=== PATIENT | female | born 1960 | race Caucasian/White ===

== ENCOUNTER 2017-01-12 17:15 | Emergency (ER) | payer OTHER ==
[2017-01-12 17:21] VITALS: BP 162/94; PULSE 121; RESP 20; TEMP 98.5
[2017-01-12] MEDS ORDERED: HYDROcodone/APAP 7.5-325MG 1 EACH TAB PO ONE (17:54)
[2017-01-12] MEDS ORDERED: DIPH,PERTUS(ACELL)TETVAC-LF 0.5 ML VIAL IM ONE (17:55)
--- NOTE | 2017-01-12 18:18 | ED ---
Animal Bite HPI - General Chief Complaint: Animal Bite Stated Complaint: dog bite Time Seen by Provider: 01/12/17 17:37 Source: patient Mode of arrival: ambulatory Limitations: no limitations - History of Present Illness Initial Comments: 56 showed female patient presents to emergency department today for evaluation of a dog bite to the left forearm. Patient states that the animal belongs to her brother at this time. States that the animal is up-to-date on its immunizations including rabies. Patient states that she was breaking up a fight between her dog and this other dog when he bit into her forearm. States this occurred just prior to arrival. Patient states that she is having significant pain to the arm, states it felt like he hit bone. There are 3 small lacerations. Patient denies any numbness or tingling to the hand or wrist or forearm. Denies any difficulty with range of motion to the elbow or the wrist. Patient denies any fall from the attack. Patient's last tetanus was around 5 years ago. Patient denies any other injuries or physical symptoms. - Related Data Previous Rx's Medication Instructions Recorded Amoxicillin/Potassium Clav 1 tab PO Q12HR #14 tab 01/12/17 [Augmentin 875-125 Tablet] Hydrocodone/Acetaminophen [[place] 1 tab PO Q6HR PRN #15 tab 01/12/17 5-325] Allergies Allergy/AdvReac Type Severity Reaction Status Date / Time morphine Allergy Rash/Hives Verified 01/12/17 17:17 Review of Systems ROS Statement: Those systems with pertinent positive or pertinent negative responses have been documented in the HPI. ROS Other: All systems not noted in ROS Statement are negative. Past Medical History Past Medical History: Cancer Additional Past Medical History / Comment(s): stage three breast cancer History of Any Multi-Drug Resistant Organisms: None Reported Past Surgical History: Hysterectomy, Orthopedic Surgery Additional Past Surgical History / Comment(s): BL masectomy, back surgery Past Psychological History: Anxiety, Depression Smoking Status: Current every day smoker Past Alcohol Use History: Occasional Past Drug Use History: None Reported General Exam Limitations: no limitations General appearance: alert, in no apparent distress Head exam: Present: atraumatic, normocephalic, normal inspection Eye exam: Present: normal appearance, PERRL, EOMI. Absent: scleral icterus, conjunctival injection, periorbital swelling ENT exam: Present: normal exam, mucous membranes moist Neck exam: Present: normal inspection, full ROM. Absent: tenderness, meningismus, lymphadenopathy Respiratory exam: Present: normal lung sounds bilaterally. Absent: respiratory distress, wheezes, rales, rhonchi, stridor Cardiovascular Exam: Present: regular rate, normal rhythm, normal heart sounds. Absent: systolic murmur, diastolic murmur, rubs, gallop, clicks GI/Abdominal exam: Present: soft, normal bowel sounds. Absent: distended, tenderness, guarding, rebound, rigid Extremities exam: Present: full ROM, tenderness (Tenderness over the proximal ulna and radius.), normal capillary refill, other (Soft tissue swelling noted to the proximal left forearm. Otherwise skin is pink, warm, and dry. Cap refill is less than 3 seconds. Patient exhibits full range of motion to the left elbow, left shoulder, and left wrist.). Absent: normal inspection (2 cm laceration noted to the dorsal aspect of the proximal left forearm, small puncture wound noted to the dorsal aspect of the proximal left forearm, 1 cm laceration noted to the volar aspect of the left forearm.), pedal edema, joint swelling, calf tenderness Back exam: Present: normal inspection. Absent: tenderness, vertebral tenderness Neurological exam: Present: alert, oriented X3, CN II-XII intact Psychiatric exam: Present: normal affect, normal mood Skin exam: Present: warm, dry, intact, normal color. Absent: rash Course Vital Signs 01/12/17 17:17 Temperature 98.5 F Pulse Rate 121 H Respiratory 20 Rate Blood Pressure 162/94 O2 Sat by Pulse 95 Oximetry Procedures - Laceration Laceration #1 Consent Obtained: verbal consent Time Out Performed: Yes Site: upper extremity, other (Dorsal aspect of the left forearm) Size (cm): 3 Pre-repair: irrigated extensively Complications: pain Patient Tolerated Procedure: well Laceration #2 Consent Obtained: verbal consent Time Out Performed: Yes Indication: laceration Site: upper extremity (Dorsal aspect of the left forearm) Size (cm): 1 Description: linear Pre-repair: irrigated extensively Complications: pain Patient Tolerated Procedure: well Laceration #3 Consent Obtained: verbal consent Time Out Performed: Yes Indication: laceration Site: upper extremity (Volar aspect of the left forearm) Size (cm): 1 Description: linear Pre-repair: irrigated extensively Complications: pain Patient Tolerated Procedure: well Medical Decision Making - Medical Decision Making 56-year-old female patient presented for evaluation of dog bite wounds to the left proximal forearm. X-ray obtained of the left forearm, showed no acute fracture or dislocation did show some tiny foci suggesting subcu emphysema. 3 lacerations to measuring 1 cm one measuring 3 cm were irrigated extensively with sterile water. Bacitracin applied over wounds and covered with gauze. Patient given tetanus shot here. Given starter pack for Augmentin. Patient given a prescription for Augmentin for 10 days. Patient instructed to follow up with her primary care physician for recheck in 1-2 days. Patient struck watch for any signs or symptoms of infection. Patient started to return immediately for any new, worsening, or concerning symptoms. - Radiology Data Radiology results: report reviewed, image reviewed Two-view x-ray of the left forearm shows scattered low attenuation foci through the mid forearm soft tissues, suggesting soft tissue emphysema. There is subcutaneous soft tissue swelling noted medially. No radiopaque foreign body. Impression by Dr. Master Saldivar shows negative bones and joints. Soft tissue swelling was suggestive scattered tiny foci of soft tissue emphysema. Disposition Clinical Impression: Dog bite of forearm Disposition: HOME SELF-CARE Condition: Good Instructions: Animal Bite (ED), Laceration (ED) Additional Instructions: Keep lacerations clean and dry. Complete antibiotic prescription and full. Follow-up with primary care physician for recheck in 1-2 days. Return immediately for any new, worsening, or concerning symptoms. Prescriptions: Amoxicillin/Potassium Clav [Augmentin 875-125 Tablet] 1 tab PO Q12HR #14 tab Hydrocodone/Acetaminophen [[place] 5-325] 1 tab PO Q6HR PRN #15 tab PRN Reason: Pain Referrals: None,Stated [REFERRING] - 1-2 days
[2017-01-12] MEDS ORDERED: AMOXIC-POT CLAV 875MG STARTER 2 EACH TABLET PO STA (18:47)
--- NOTE | 2017-01-12 18:58 | XR ---
EXAMINATION TYPE: XR forearm LT DATE OF EXAM: 01/12/2017 COMPARISON: NONE HISTORY: Dog bite mid forearm, pain TECHNIQUE: 2 views from the elbow to the wrist FINDINGS: The bones and joints are negative. There are scattered low attenuation foci throughout the mid forearm soft tissues, suggesting soft tis cici emphysema. There is subcutaneous soft tissue swelling noted medially. No radiopaque foreign body. IMPRESSION: 1. Negative bones and joints. 2. Soft tissue swelling with suggestion of scattered tiny foci of soft tissue emphysema.
== END 2017-01-12 19:22 | disposition home or self-care (01) ==
LOC: EC 17:15
DX: S51.852A Open bite of left forearm, initial encounter (principal); F17.200 Nicotine dependence, unspecified, uncomplicated; Z85.3 Personal history of malignant neoplasm of breast; Z23 Encounter for immunization; Z88.5 Allergy status to narcotic agent; W54.0XXA Bitten by dog, initial encounter
CPT/HCPCS: 90471; 90715; 99283

== ENCOUNTER 2023-10-19 18:44 | Emergency (ER) | payer OTHER ==
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
[2023-10-19 19:24] VITALS: TEMP 98.7
[2023-10-19 21:02] VITALS: BP 100/68; PULSE 80; RESP 16
== END 2023-10-19 20:18 | disposition home or self-care (01) ==
LOC: EC 18:44
DX: F41.9 Anxiety disorder, unspecified (principal); F17.200 Nicotine dependence, unspecified, uncomplicated; Z88.5 Allergy status to narcotic agent; Z88.8 Allergy status to other drugs, medicaments and biological substances
CPT/HCPCS: 93005; 99285